=== PATIENT | male | born 1965 | race Caucasian/White ===

== ENCOUNTER 2019-09-13 18:41 | Emergency (ER) | payer OTHER ==
[~2019-09-13] VITALS: Ht 180.3 cm; Wt 111.1 kg
[2019-09-13] MEDS ORDERED: VERELAN240 MG (19:01)
[2019-09-13] MEDS ORDERED: NASAL MIST126 ML (19:02)
[2019-09-13] MEDS ORDERED: CATAPRES0.2 MG (19:03)
== END 2019-09-13 20:07 | disposition home or self-care (01) ==
LOC: ER 18:41
DX: I10 Essential (primary) hypertension (principal)